=== PATIENT | male | born 1945 | race Caucasian/White ===

== ENCOUNTER 2017-02-01 13:20 | Outpatient (CLI) | payer MEDICARE ==
[~2017-02-01] VITALS: Ht 177.8 cm; Wt 104.3 kg
[2017-02-01] MEDS ORDERED: BUPIVACAINE 0.25% 30 ML (SENSORCAINE) VIAL ONE (13:22)
[2017-02-01] MEDS ORDERED: TRIAMCINOLONE ACET (KENALOG-40) 40 MG/ML 1 ML VIAL ONE (13:22)
[2017-02-01 13:31] VITALS: BP 142/91
[2017-02-01 14:08] VITALS: BP 156/59
--- NOTE | 2017-02-01 14:58 | Pain Medicine-Procedure ---
Procedure Pre-Op/Post-Op Diagnosis Diagnosis: disc disorder radiculopathy, lumbar Indications for Operation Low back pain Attending Surgeon Kalyn Procedure Date of Service: Feb 01, 2017 Procedure: Lumbar Epidural Steroid Injection at the L5-S1 level under Fluoroscopic Guidance Procedure: Patient was identified in the holding area. After risks, benefits, and alternatives were discussed with the patient, informed consent was obtained. Patient was brought to the fluoroscopy suite and placed prone on the procedure room table. A time out was performed. Vital signs were monitored throughout the procedure. The patients low back was prepped and draped in the usual sterile fashion. The patients skin was anesthetized using 2% Lidocaine. A Tuohy needle was inserted and advanced to the L5-S1 epidural space under fluoroscopic guidance using the loss of resistance technique and intermittent projection of fluoroscopy. There was no paresthesia with needle placement. The needle position was confirmed in both the AP and lateral view. After negative aspiration 2ml of contrast was injected under live fluoroscopy which showed good spread of the contrast in the epidural space at the appropriate level, there was no intravascular or subarachnoid spread. Again, after negative aspiration for heme or CSF, 2 ml of 0.25% Bupivicaine, 2ml of preservative free normal saline, and 80mg of Kenalog was injected. The needle was removed and a sterile bandage was placed and the patient was transferred to the recovery area in stable condition. After a brief period of observation, patient was discharged to home with no new neurological deficits and no apparent complications. Complications None ALIYA MALCOLM MD Feb 01, 2017 2:58 pm
== END 2017-02-01 14:09 | disposition home or self-care (01) ==
LOC: CARD 13:20
PROVIDERS: ATTEND Pain Medicine Pain Medicine
DX: M51.16 Intervertebral disc disorders with radiculopathy, lumbar region (principal)
CPT/HCPCS: 62323

== ENCOUNTER → 2017-09-13 | Outpatient (CLI) | payer MEDICARE ==
--- NOTE | 2017-09-13 20:01 | Diagnostic Imaging Report ---
PROCEDURE: Lung cancer screening CT chest without contrast. TECHNIQUE: Multiple contiguous axial images were obtained through the chest without the use of intravenous contrast. This is performed with a low-dose protocol. INDICATION: Currently asymptomatic patient with 40 pack years history of smoking Comparison: No prior studies are available for comparison. Findings: There is a calcified granuloma seen in the superior segment of the right lower lobe. No significant consolidation, mass or suspicious nodule is noted. The heart size is normal. The thoracic aorta is normal in caliber. The heart size is normal. No pleural or pericardial effusion. No mediastinal or axillary lymphadenopathy. The hilar vessels are not opacified on this unenhanced exam with no hilar mass identified. The osseous structures demonstrate minimal degenerative changes. IMPRESSION: No suspicious nodule seen. Lung Rads Category 2. Benign findings. Recommendations: Annual screening low-dose CT scan. Dictated by: Dictated on workstation # [id number]
== END ==
LOC: RAD 08:55
PROVIDERS: ATTEND Nurse Practitioner Family
DX: Z12.2 Encounter for screening for malignant neoplasm of respiratory organs (principal); F17.210 Nicotine dependence, cigarettes, uncomplicated

== ENCOUNTER → 2018-09-24 | Outpatient (CLI) | payer MEDICARE ==
--- NOTE | 2018-09-24 12:37 | Diagnostic Imaging Report ---
EXAMINATION: CT low-dose lung cancer screening. INDICATION: 41-year pack. Smoking history The previous CT low-dose lung cancer screening exam of 09/13/2017 failed to show any sign of a parenchymal lung nodule. On this exam there is still no parenchymal lung mass to suggest neoplasm. As noted on the prior exam there is a 8 MM calcified nodule in the medial aspect of the right lower lobe. This is most likely a benign process such as a granuloma. There are mild emphysematous changes involving both lungs. There is no sign of failure, pneumonia or of a pleural effusion to indicate an acute abnormality. The heart size is within normal limits and stable when compared to the prior exam. Coronary calcifications are again noted. The aorta is not abnormally dilated. There is no obvious mediastinal or hilar adenopathy. The thyroid gland was not well visualized due to streak artifact. The sections through the upper abdomen fail to show any sign of an acute abnormality. The bone windows are unremarkable for a fracture or for a a destructive lesion. IMPRESSION: 1. There is no evidence for a parenchymal lung mass. A followup low-dose lung cancer screening exam in one year would be recommended for continued evaluation. 2. There are mild emphysematous changes involving both lungs but there is no sign of an acute cardiopulmonary abnormality. 3. There is coronary artery disease. LUNG-RADS CATEGORY:1 Dictated by: Dictated on workstation # [id number]
== END ==
LOC: RAD 08:31
PROVIDERS: ATTEND Nurse Practitioner Family
DX: Z12.2 Encounter for screening for malignant neoplasm of respiratory organs (principal); J43.9 Emphysema, unspecified; I25.10 Atherosclerotic heart disease of native coronary artery without angina pectoris; F17.210 Nicotine dependence, cigarettes, uncomplicated

== ENCOUNTER 2019-06-10 10:00 | Outpatient (CLI) | payer MEDICARE ==
[~2019-06-10] VITALS: Ht 177.8 cm; Wt 97.1 kg
[2019-06-10] MEDS ORDERED: LOSA25TA41 PO (10:25)
[2019-06-10] MEDS ORDERED: SIMV20TA3 PO (10:25)
== END 2019-06-10 10:27 | disposition home or self-care (01) ==
LOC: PREOP 10:00
PROVIDERS: ATTEND Surgery
DX: Z01.818 Encounter for other preprocedural examination (principal)

== ENCOUNTER 2019-06-16 06:50 | Day surgery (SDC) | payer MEDICARE ==
[~2019-06-16] VITALS: Ht 177.8 cm; Wt 97.1 kg
[~2019-06-16 06:50] MED LIST: LOSA25TA41 PO; SIMV20TA3 PO
[2019-06-16] MEDS ORDERED: LACTATED RINGERS 1,000 ML IV ONE (07:01)
[2019-06-16] MEDS ORDERED: LACTATED RINGERS 1,000 ML IV STA (07:12)
[2019-06-16] MEDS ORDERED: LIDOCAINE JELLY 2% 6 ML SYRINGE MM PRN (07:15)
[2019-06-16] MEDS ORDERED: ceFAZolin 2 GM/50 ML NS 50 ML ONE (07:22)
[2019-06-16 07:35] VITALS: BP 143/68
--- NOTE | 2019-06-16 07:36 | Progress Note-Pre Operative ---
Pre-Operative Progress Note H&P Reviewed The H&P was reviewed, patient examined and no changes noted. Date Seen by Provider: Jun 16, 2019 Time Seen by Provider: 07:35 Date H&P Reviewed: Jun 16, 2019 Time H&P Reviewed: 07:35 Pre-Operative Diagnosis: screening colonoscopy JACOBO REYNOLDS DO Jun 16, 2019 07:36
[2019-06-16] MEDS ORDERED: PROPOFOL INJECTION 50 ML IV ONE (07:38)
[2019-06-16] MEDS ORDERED: PHENYLEPHRINE 100 MCG/ML 10 ML (ANESTHESIA) SYR ONE (07:57)
[2019-06-16] MEDS ORDERED: proPOfol 200 MG/20 ML (DIPRIVAN) VIAL IV ONE (08:43)
[2019-06-16 08:55] VITALS: BP 121/57
--- NOTE | 2019-06-16 08:59 | Progress Note-Post Operative ---
Post-Operative Progess Note Surgeon (s)/Inspector Balance Wheel Motion (s) Surgeon JACOBO REYNOLDS DO Inspector Balance Wheel Motion: na Pre-Operative Diagnosis screening colonoscopy Post-Operative Diagnosis Colon polyps and diverticulosis Procedure & Operative Findings Date of Procedure 06/16/19 Procedure Performed/Findings Colonoscopy with snare polypectomy X3 and hot bx polypectomy x6 Anesthesia Type per PICK UP DRIVER Estimated Blood Loss Estimated blood loss (mL): none Specimens/Packing Specimens Removed Colon polyps JACOBO REYNOLDS DO Jun 16, 2019 08:59
[2019-06-16 09:00] VITALS: BP 123/58
[2019-06-16 09:05] VITALS: BP 131/63
--- NOTE | 2019-06-16 09:08 | Discharge Inst-Simple/Standard ---
Discharge Inst-Standard Patient Instructions/Follow Up Plan of Care/Instructions/FU: 2 weeks Karina Activity as Tolerated: Yes Discharge Diet: Regular Diet (high fiber) JACOBO REYNOLDS DO Jun 16, 2019 09:08
[2019-06-16 09:10] VITALS: BP 131/63
--- NOTE | 2019-06-16 09:32 | Anesthesia-General Post-Op ---
MAC Patient Condition Mental Status/LOC: Same as Preop Cardiovascular: Satisfactory Nausea/Vomiting: Absent Respiratory: Satisfactory Pain: Controlled Complications: Absent Post Op Complications Complications None Follow Up Care/Instructions Patient Instructions None needed. Anesthesiology Discharge Order Discharge Order Patient is doing well, no complaints, stable vital signs, no apparent adverse anesthesia problems. No complications reported per nursing. DAYAMI ARELLANO CRNA Jun 16, 2019 09:32
[2019-06-16 09:50] VITALS: BP 145/78
--- NOTE | 2019-06-16 12:04 | OPERATIVE REPORT ---
DATE OF SERVICE: 06/16/2019 PREOPERATIVE DIAGNOSIS: Screening colonoscopy. POSTOPERATIVE DIAGNOSIS: Multiple colon polyps and diverticulosis. PROCEDURE: Colonoscopy with snare polypectomy x3 and hot biopsy polypectomy x6. SURGEON: Jacobo Collins DO ANESTHESIA: Per MANAGER OPERATING. ESTIMATED BLOOD LOSS: None. COMPLICATIONS: None. INDICATIONS: The patient is a 73-year-old male due for screening colonoscopy. He understands risks and benefits of procedure and wished to proceed with procedure. Consent was signed in the chart. DESCRIPTION OF PROCEDURE: The patient was taken to the endoscopy suite, placed in left lateral recumbent position. Timeout was performed. Digital rectal exam was performed. There were no palpable polyps, masses or ulcerations. Scope was inserted in the rectum, advanced all the way to cecum with minimal difficulty. Prep was adequate. Scope was then slowly retracted back. There were no polyps, masses or ulcerations in the cecum, ascending colon. In transverse colon, a small polyp was present, which snare polypectomy was performed. Scope was continued slowly retracted back. Three other polyps were present in the transverse colon, which hot biopsy polypectomy was performed. Scope was then continued to be slowly retracted back. In the descending colon, there are two small polyps, which hot biopsy polypectomy was performed. Slightly larger polyp was present, which snare polypectomy was performed in the descending colon. Scope then had to be retracted all the way out to have it obtained for specimen. It would be suctioned. Scope was reinserted and advanced all the way to the point where this was snared. Scope was then continued to be slowly retracted back and another polyp was present in the sigmoid colon, which snare polypectomy was performed. Scope was then continuously slowly retracted back. There were some small hyperplastic appearing polyps present, which were fulgurated and then in the rectum, another small polyp was present, which hot biopsy polypectomy was performed. Scope was retroflexed noting no other pathology. Scope was returned to its normal position, slowly withdrawn until completely removed. RECOMMENDATIONS: We would recommend repeat colonoscopy in 1 to 3 years depending upon pathology. Any issues before that to be seen at that time. Also recommended high fiber diet due to the diverticulosis that he had through the sigmoid colon, which was minimal. Job ID: [id number] DocumentID: [id number] Dictated Date: 06/16/2019 09:11:15 Systems Consultant Date: 06/16/2019 12:03:04 Dictated By: JACOBO COLLINS DO
== END 2019-06-16 09:50 | disposition home or self-care (01) ==
LOC: ENDO 06:50
PROVIDERS: ATTEND Surgery
DX: Z12.11 Encounter for screening for malignant neoplasm of colon (principal); D12.3 Benign neoplasm of transverse colon; K63.5 Polyp of colon; K63.89 Other specified diseases of intestine; K57.30 Diverticulosis of large intestine without perforation or abscess without bleeding; E78.5 Hyperlipidemia, unspecified; M50.30 Other cervical disc degeneration, unspecified cervical region; M48.02 Spinal stenosis, cervical region; M47.9 Spondylosis, unspecified; Z87.891 Personal history of nicotine dependence; Z88.2 Allergy status to sulfonamides; Z79.899 Other long term (current) drug therapy; Z96.651 Presence of right artificial knee joint; Z80.9 Family history of malignant neoplasm, unspecified

== ENCOUNTER → 2020-11-15 | Outpatient (CLI) | payer MEDICARE, OTHER ==
[~2020-11-15] MED LIST changes: +SIMV20TA26 PO; -SIMV20TA3 PO
--- NOTE | 2020-11-15 09:30 | Diagnostic Imaging Report ---
EXAMINATION: CT Lung Screening. INDICATION: 40 pack year smoking history. Cessation 2 years ago. He presents for low-dose CT screening. TECHNIQUE: Noncontrast, low-dose CT imaging performed according to the lung cancer screening protocol. Auto Exposure Controls were utilize during the CT exam to meet ALARA standards for radiation dose reduction. COMPARISON: 09/24/2018. FINDINGS: The densely calcified stable benign granuloma in the right lower lobe is unchanged. Chronic changes of centrilobular emphysema superimposed are unchanged. No new or suspicious lung mass. No findings of neoplasm. The atherosclerotic calcified aorta is normal in caliber. There are coronary atherosclerotic vascular calcifications. No pneumonia, effusion, or pneumothorax. IMPRESSION: No suspicious mass. LUNG-RADS CATEGORY:Category 1. MODIFIER:None. OTHER SIGNIFICANT FINDINGS:Atherosclerotic vascular calcifications and underlying COPD. Dictated by: Dictated on workstation # [id number]
== END ==
LOC: RAD 08:45
PROVIDERS: ATTEND Nurse Practitioner Family
DX: Z12.2 Encounter for screening for malignant neoplasm of respiratory organs (principal); Z87.891 Personal history of nicotine dependence
CPT/HCPCS: 71271

== ENCOUNTER 2021-02-27 06:09 | Outpatient (CLI) | payer MEDICARE, OTHER ==
[~2021-02-27] VITALS: Ht 177.8 cm; Wt 97.7 kg
== END 2021-03-01 12:08 | disposition home or self-care (01) ==
LOC: PREOP 06:09
PROVIDERS: ATTEND Surgery
DX: Z01.818 Encounter for other preprocedural examination (principal)

== ENCOUNTER 2021-03-02 07:25 | Day surgery (SDC) | payer MEDICARE, OTHER ==
[2021-03-02] VITALS (8 sets, daily range): BP systolic 118–154; BP diastolic 54–85
[~2021-03-02] VITALS: Ht 177.8 cm; Wt 97.7 kg
--- NOTE | 2021-03-02 07:49 | Progress Note-Pre Operative ---
Pre-Operative Progress Note H&P Reviewed The H&P was reviewed, patient examined and no changes noted. Date Seen by Provider: March 02, 2021 Time Seen by Provider: 07:49 Date H&P Reviewed: March 02, 2021 Time H&P Reviewed: 07:49 Pre-Operative Diagnosis: perioneal cyst JACOBO REYNOLDS DO March 02, 2021 07:49
[2021-03-02] MEDS ORDERED: fentaNYL INJ 100 MCG/2 ML AMP ONE (07:55)
[2021-03-02] MEDS ORDERED: MIDAZOLAM 2 MG/2 ML (VERSED) VIAL ONE (07:55)
[2021-03-02] MEDS ORDERED: LIDOCAINE/EPI 1%-1:100,000 (XYLOCAINE) 20ML ONE (08:05)
[2021-03-02] MEDS ORDERED: LACTATED RINGERS 1,000 ML IV PRN (08:15)
[2021-03-02] MEDS ORDERED: ceFAZolin 2 GM IV Premixed 50 ML ONE (08:18)
[2021-03-02] MEDS ORDERED: SEVOFLURANE (ULTANE) 15 ML INHAL SOLN ONE ×2 (08:34→09:00)
[2021-03-02] MEDS ORDERED: proPOfol 200 MG/20 ML (DIPRIVAN) VIAL IV ONE (08:34)
[2021-03-02] MEDS ORDERED: LIDOCAINE PF 2% 5 ML (XYLOCAINE) VIAL ONE (08:34)
[2021-03-02] MEDS ORDERED: ONDANSETRON 4 MG/2 ML (SDV) Z0FRAN ONE (08:34)
[2021-03-02] MEDS ORDERED: fentaNYL INJ 100 MCG/2 ML AMP IVP ONE (09:15)
[2021-03-02] MEDS ORDERED: morphine INJ 10 MG/ML 1ML (SYR OR VIAL) IVP ONE (09:15)
[2021-03-02] MEDS ORDERED: ONDANSETRON 4 MG/2 ML (SDV) Z0FRAN IVP PRN (09:15)
[2021-03-02] MEDS ORDERED: MEPERIDINE (DEMEROL) INJ 50 MG/ML IVP ONE (09:15)
--- NOTE | 2021-03-02 09:45 | Discharge Inst-Simple/Standard ---
Discharge Inst-Standard Patient Instructions/Follow Up Plan of Care/Instructions/FU: 2 weeks Karina Activity as Tolerated: No Discharge Diet: Regular Diet Other Inst to Patient Follow up Appt: Make appointment for 2 week. Instructions: No lifting greater than 10 pounds. No strenuous activity. May shower in 24 hours, no tub bath or soaking. Use incentive spirometer at home as directed. No Smoking Skin/Wound Care: You have special glue over your incision that will fall off on it's own. Symptoms to Report: Appetite Changes, Extremity Discoloration, Numbness/Tingling, Swelling Increased, Bleeding Excessive, Eyesight Changes, Pain Increased, Urine Color Change, Constipation(Persistent), Fever over 101 degree F, Pain/Pressure in chest, Urinating Difficulty, Cough Up/Vomit Blood, Heart Beat Irreg/Pounding, Pain/Pressure in jaw, Vaginal Bleeding Increase, Cramps in feet or legs, Lightheadedness, Pain/Pressure in shoulder, Diarrhea(Persistent), Memory Changes Suddenly, Questions/Concerns, Weight gain consecutive days, Dizziness/Fainting, Nausea/Vomiting, Shortness of Breath, Weight gain over 2 pounds If questions or concerns contact your physician Or seek help at emergency department. JACOBO REYNOLDS DO March 02, 2021 09:44
--- NOTE | 2021-03-02 10:37 | Anesthesia-General Post-Op ---
General Patient Condition Mental Status/LOC: Same as Preop Cardiovascular: Satisfactory Nausea/Vomiting: Absent Respiratory: Satisfactory Pain: Controlled Complications: Absent Post Op Complications Complications None Follow Up Care/Instructions Patient Instructions None needed. Anesthesia/Patient Condition Patient Condition Patient is doing well, no complaints, stable vital signs, no apparent adverse anesthesia problems. No complications reported per nursing. MEKA HOLLEY CRNA March 02, 2021 10:37
--- NOTE | 2021-03-02 21:59 | OPERATIVE REPORT ---
DATE OF SERVICE: 03/02/2021 PREOPERATIVE DIAGNOSIS: Perineal cyst. POSTOPERATIVE DIAGNOSIS: Perineal cyst. PROCEDURE: Excision of perineal cyst 4.3 x 1.8 cm. SURGEON: Jacobo Collins DO ANESTHESIA: General. ESTIMATED BLOOD LOSS: Minimal. COMPLICATIONS: None. INDICATIONS: The patient is a 75-year-old male with a cyst in perineal region. He was discussed risks and benefits of procedure and wished to proceed with procedure. Consent was signed in the chart. DESCRIPTION OF PROCEDURE: The patient was taken to the operating suite, was prepped and draped in lithotomy position. Timeout was performed. A 15 blade scalpel was used to make a skin incision measuring 4.3 x 1.8 cm elliptical fashion. Cautery was used to remove the skin and subcutaneous tissues, removing the cyst in its entirety. The wound was then irrigated and local anesthetic was infiltrated in the skin and subcutaneous tissues were then reapproximated using 3-0 Vicryl. Skin was then closed using Skin Affix. The patient tolerated procedure well without any complications, taken to recovery room in stable condition. Job ID: [id number] DocumentID: [id number] Dictated Date: 03/02/2021 16:13:09 Shank Threader Date: 03/02/2021 21:59:34 Dictated By: JACOBO COLLINS DO
== END 2021-03-02 10:40 | disposition home or self-care (01) ==
LOC: SDC 07:25
PROVIDERS: ATTEND Surgery
DX: L72.3 Sebaceous cyst (principal); L02.215 Cutaneous abscess of perineum; I10 Essential (primary) hypertension; E78.5 Hyperlipidemia, unspecified; E66.9 Obesity, unspecified; Z68.30 Body mass index [BMI] 30.0-30.9, adult; Z79.899 Other long term (current) drug therapy; Z87.891 Personal history of nicotine dependence
CPT/HCPCS: 87081

== ENCOUNTER → 2021-11-10 | Outpatient (CLI) | payer MEDICARE, OTHER | LOC: CARD 10:30 | PROVIDERS: ATTEND Family Medicine | DX: I49.9 Cardiac arrhythmia, unspecified (principal) | CPT/HCPCS: 93005 ==

== ENCOUNTER → 2023-03-07 | Outpatient (CLI) | payer MEDICARE, OTHER ==
--- NOTE | 2023-03-07 13:30 | Diagnostic Imaging Report ---
Exam: CT left knee without contrast. Date: March 07, 2023. Indication: 77-year-old male, left knee pain. Total knee replacement. Comparison: None. Technique: Axial CT images of the left knee were obtained without contrast. Coronal and sagittal reformats were obtained and provided. All CT scans use one or more of the following dose optimizing techniques: automated exposure control, MA and/or KvP adjustment based on patient size and exam type or iterative reconstruction. . Findings: There is a total left knee prosthesis. There is no identified periprosthetic lucency. There is no identified acute fracture. The patella is normally positioned. There is no large knee joint effusion. There is no visible focal fluid collection. Impression: 1. Intact total left knee prosthesis without identified complication. 2. No identified acute bony abnormality. Dictated by: Dictated on workstation # [id number]
== END ==
LOC: RAD 10:48
PROVIDERS: ATTEND Orthopaedic Surgery
DX: M25.562 Pain in left knee (principal); Z96.652 Presence of left artificial knee joint
CPT/HCPCS: 73700

== ENCOUNTER → 2023-07-02 | Outpatient (CLI) | payer MEDICARE, OTHER | LOC: CARD 09:13 | PROVIDERS: ATTEND Nurse Practitioner Family | DX: R01.1 Cardiac murmur, unspecified (principal) | CPT/HCPCS: 93306 ==